=== PATIENT | male | born 1985 | race Caucasian/White ===

== ENCOUNTER 2017-09-06 05:29 | Emergency (ER) | payer SELFPAY ==
[~2017-09-06 05:29] MED LIST: CYCL5TAB PO; NAPR-576 PO
[2017-09-06 05:34] VITALS: BP 142/74; PULSE 105; RESP 14; TEMP 97.8; O2SAT 96
[2017-09-06] MEDS ORDERED: SERO50TA PO (05:55)
[2017-09-06] MEDS ORDERED: TRIL300T PO (05:55)
[2017-09-06] MEDS ORDERED: PRAZ1 PO (05:55)
[2017-09-06] MEDS ORDERED: ZOLO25TA PO (05:55)
--- NOTE | 2017-09-06 06:11 | PD ---
HPI Chief Complaint: Psychiatric Symptoms Time Seen by Provider: 05:46 Travel History International Travel<30 days: No Contact w/Intl Traveler<30days: No Traveled to known affect area: No History of Present Illness HPI 32-year-old white male presents emergency department on a voluntary basis for psychological evaluation. Patient states that he is feeling increasingly depressed. Patient has a history of bipolar, PTSD, traumatic brain injury with subdural hematoma. Patient states that he also has a history of substance abuse. He moved from [facility] 2 weeks ago. He had come down to [place] with his girlfriend. He states that she had gone back home. They had moved here initially to start a new life together. He states that she did not want to stay here. When he had moved down here he ran out of his medications. He has been using cocaine again and drinking alcohol. he has lost his motivation.He is feeling increasingly useless, depressed. Patient denies any suicidal ideation. No homicidal ideation. He denies any medical complaints. Patient denies any toxic ingestions. [facility] Past Medical History Narrative Medical Bipolar, TBI with subdural hematoma, substance abuse Bipolar Disorder: Yes Anxiety: Yes Depression: Yes Diabetes: No Diminished Hearing: No Neurologic: Yes (TRAUMATIC BRAIN INJURY) Psychiatric: Yes Tetanus Vaccination: < 5 Years Past Surgical History Surgical History: No Previous Surgery Social History Alcohol Use: Yes (OCCASIONAL) Tobacco Use: Yes (1PPD) Substance Use: Yes (Cocaine) Allergies-Medications (Allergen,Severity, Reaction): Coded Allergies: penicillin G (Unverified Allergy, Severe, RASH, 09/06/17) Reported Meds & Prescriptions Reported Meds & Active Scripts Active Reported Seroquel (Quetiapine Fumarate) 50 Mg Tab 50 Mg PO HS Minipress (Prazosin HCl) 1 Mg Cap 1 Mg PO HS Trileptal (Oxcarbazepine) 300 Mg Tab 300 Mg PO TID Zoloft (Sertraline HCl) 25 Mg Tab 25 Mg PO DAILY Review of Systems General / Constitutional: No: Fever Eyes: No: Visual changes HENT: No: Headaches Cardiovascular: No: Chest Pain or Discomfort Respiratory: No: Shortness of Breath Gastrointestinal: No: Abdominal Pain Genitourinary: No: Dysuria Musculoskeletal: No: Pain Skin: No Rash Neurologic: No: Weakness Psychiatric: Positive: Depression, Mood Disorder, Substance Abuse, No: Anxiety , Suicidal Ideations, Disorder of Thought, Homicidal Ideation Endocrine: No: Polydipsia Hematologic/Lymphatic: No: Easy Bruising Physical Exam Narrative GENERAL: Well-nourished, well-developed patient. SKIN: Warm and dry. HEAD: Normocephalic and atraumatic. EYES: No scleral icterus. No injection or drainage. ENT: No nasal drainage noted. Mucous membranes pink. Airway patent. NECK: Supple, trachea midline. Moves head freely without obvious discomfort. CARDIOVASCULAR: Regular rate and rhythm without murmurs, gallops, or rubs. RESPIRATORY: Breath sounds equal bilaterally. No accessory muscle use. GASTROINTESTINAL: Abdomen soft, non-tender, nondistended. EXTREMITIES: No cyanosis or edema. BACK: Nontender without obvious deformity. No CVA tenderness. NEURO: Patient is alert and oriented. no sensorimotor deficits. Nonfocal. Normal speech. PSYCH: No delusions. No auditory or visual hallucinations. Data Data Last Documented VS Vital Signs Date Time Temp Pulse Resp B/P (MAP) Pulse Ox O2 Delivery O2 Flow Rate FiO2 09/06/17 05:34 97.8 105 14 142/74 (96) 96 Orders Orders Complete Blood Count With Diff (09/06/17 06:02) Comprehensive Metabolic Panel (09/06/17 06:02) Thyroid Stimulating Hormone (09/06/17 06:02) Psych Screen (09/06/17 06:02) Drug Screen, Random Urine (09/06/17 06:02) Alcohol (Ethanol) (09/06/17 06:02) MDM Medical Decision Making Medical Screen Exam Complete: Yes Emergency Medical Condition: Yes Medical Record Reviewed: Yes Differential Diagnosis MDM: High Differential diagnoses: Schizophrenia, schizoaffective disorder, bipolar, anxiety, depression, adjustment reaction, mood disorder NOS, ODD, depressive disorder NOS, dementia, dementia with agitation, psychosis NOS, substance induced mood disorder, DMDD, Asperger syndrome, infection,electrolyte abnormality, malingering. Narrative Course Mental health screening discussed with the patient. Psychiatric screen ordered. The patient has been medically cleared. This is medical clearance for psychiatric admission Diagnosis Primary Impression: Medical clearance for psychiatric admission Condition: Stable Moncho Daniel Sep 06, 2017 06:11
[2017-09-06 06:56] LABS: AUTOMATED NEUTROPHIL # 6.1 TH/MM3 (1.8-7.7); BASOPHIL % 0.5 % (0.0-2.0); EOSINOPHIL % 0.2 % (0.0-4.0); HEMOGLOBIN 14.5 GM/DL (13.0-17.0); LYMPH % 26.1 % (9.0-44.0); LYMPHOCYTE # 2.4 TH/MM3 (1.0-4.8); MEAN CELL VOLUME 84.3 FL (80.0-100.0); MEAN CORPUSCULAR HEMOGLOBIN 28.4 PG (27.0-34.0); MEAN CORPUSCULAR HGB CONC 33.7 % (32.0-36.0); MEAN PLATELET VOLUME 8.2 FL (7.0-11.0); MONO % 5.9 % (0.0-8.0); MONOCYTE # 0.5 TH/MM3 (0-0.9); NEUT % 67.3 % (16.0-70.0); PLATELET COUNT 257 TH/MM3 (150-450); RED CELL DISTRIBUTION WIDTH 15.1 % (11.6-17.2); WHITE BLOOD COUNT 9.1 TH/MM3 (4.0-11.0)
[2017-09-06 07:08] LABS: ALBUMIN 4.5 GM/DL (3.4-5.0); ALT (GPT) 18 U/L (12-78); AST (GOT) 16 U/L (15-37); BICARBONATE 22.8 MEQ/L (21.0-32.0); BLOOD UREA NITROGEN 9 MG/DL (7-18); CALCIUM 8.7 MG/DL (8.5-10.1); CHLORIDE 106 MEQ/L (98-107); CREATININE 0.82 MG/DL (0.60-1.30); GLOMERULAR FILTRATION RATE 109 ML/MIN (>89); GLUCOSE,RANDOM 91 MG/DL (74-106); SODIUM (NA) 140 MEQ/L (136-145)
[2017-09-06 07:18] LABS: ALKALINE PHOSPHATASE 77 U/L (45-117); TOTAL BILIRUBIN ADULT 0.3 MG/DL (0.2-1.0)
[2017-09-06 07:25] VITALS: BP 123/62; PULSE 86; RESP 18; O2SAT 96
[2017-09-06 13:54] VITALS: BP 122/76; PULSE 81; RESP 18; O2SAT 99
--- NOTE | 2017-09-06 16:37 | PD.PSY.CON ---
Provisional Diagnosis Admission Date [place] I. Substance induced mood disorder, cocaine and alcohol use disorder [place] II. Antisocial personality disorder, [place] III. no medical history History of Present Illness Service Psychiatry Consult Requested By ER Reason for Consult SI Primary Care Physician No Primary Care Physician HPI The patient is a 32-year-old man, domiciled in [facility], employed, , recently moved form [place], Self reported PPHx of bipolar, PTSD, maniple psychiatric admission, SAs, self cutting behavior, medical history of TBI, presents emergency department on a voluntary basis for psychological evaluation. Patient states that he is feeling increasingly depressed. Patient has a history of bipolar, PTSD, traumatic brain injury with subdural hematoma. Patient states that he also has a history of substance abuse. He moved from [facility] 2 weeks ago. He had come down to [place] with his girlfriend. He states that she had gone back home. They had moved here initially to start a new life together. He states that she did not want to stay here. When he had moved down here he ran out of his medications. He has been using cocaine again and drinking alcohol. he has lost his motivation.He is feeling increasingly useless , depressed. Patient denies any suicidal ideation. No homicidal ideation. He denies any medical complaints. Patient denies any toxic ingestions. Past Family Social History Coded Allergies: penicillin G (Unverified Allergy, Severe, RASH, 09/06/17) Reported Medications Quetiapine (Seroquel) 50 Mg Tab, 50 MG PO HS, #30 TAB 0 Refills 09/06/17 Prazosin (Minipress) 1 Mg Cap, 1 MG PO HS for Blood Pressure Management, #60 CAP 0 Refills 09/06/17 Oxcarbazepine (Trileptal) 300 Mg Tab, 300 MG PO TID for Seizure Control, #60 TAB 0 Refills 09/06/17 Sertraline (Zoloft) 25 Mg Tab, 25 MG PO DAILY, #30 TAB 0 Refills 09/06/17 Physical Exam Vital Signs Vital Signs Date Time Temp Pulse Resp B/P (MAP) Pulse Ox O2 Delivery O2 Flow Rate FiO2 09/06/17 13:54 81 18 122/76 (91) 99 Room Air 09/06/17 05:34 97.8 Lab Results Test 09/06/17 06:15 White Blood Count 9.1 TH/MM3 Red Blood Count 5.10 MIL/MM3 Hemoglobin 14.5 GM/DL Hematocrit 43.0 % Mean Corpuscular Volume 84.3 FL Mean Corpuscular Hemoglobin 28.4 PG Mean Corpuscular Hemoglobin Concent 33.7 % Red Cell Distribution Width 15.1 % Platelet Count 257 TH/MM3 Mean Platelet Volume 8.2 FL Neutrophils (%) (Auto) 67.3 % Lymphocytes (%) (Auto) 26.1 % Monocytes (%) (Auto) 5.9 % Eosinophils (%) (Auto) 0.2 % Basophils (%) (Auto) 0.5 % Neutrophils # (Auto) 6.1 TH/MM3 Lymphocytes # (Auto) 2.4 TH/MM3 Monocytes # (Auto) 0.5 TH/MM3 Eosinophils # (Auto) 0.0 TH/MM3 Basophils # (Auto) 0.0 TH/MM3 CBC Comment DIFF FINAL Differential Comment Blood Urea Nitrogen 9 MG/DL Creatinine 0.82 MG/DL Random Glucose 91 MG/DL Total Protein 8.0 GM/DL Albumin 4.5 GM/DL Calcium Level 8.7 MG/DL Alkaline Phosphatase 77 U/L Aspartate Amino Transf (AST/SGOT) 16 U/L Alanine Aminotransferase (ALT/SGPT) 18 U/L Total Bilirubin 0.3 MG/DL Sodium Level 140 MEQ/L Potassium Level 3.9 MEQ/L Chloride Level 106 MEQ/L Carbon Dioxide Level 22.8 MEQ/L Anion Gap 11 MEQ/L Estimat Glomerular Filtration Rate 109 ML/MIN Thyroid Stimulating Hormone 3rd Gen 1.860 uIU/ML Urine Opiates Screen NEG Urine Barbiturates Screen NEG Urine Amphetamines Screen NEG Urine Benzodiazepines Screen NEG Urine Cocaine Screen POS Urine Cannabinoids Screen NEG Ethyl Alcohol Level 32 MG/DL Mental Status Examination Appearance: Appropriate Consciousness: Alert Orientation: x4 Motor Activity: Normal gait Speech: Unremarkable Language: Adequate Fund of Knowledge: Adequate Attention and Concentration: Adequate Memory: Unremarkable Mood: Angry Affect: Irritable Thought Process & Associations: Intact Thought Content: Appropriate Hallucination Type: None Delusion Type: None Suicidal Ideation: No Suicidal Plan: No Suicidal Intention: No Homicidal Ideation: No Homicidal Plan: No Homicidal Intention: No Insight: Poor Judgment: Poor Assessment & Plan Problem List: (1) Antisocial personality disorder ICD Codes: F60.2 - Antisocial personality disorder Assessment & Plan: Patient does not present any neuropsychiatric symptoms or require immediate psychiatric intervention. Hydroxyzine 25 mg for anxiety Drug seeking behavior, requesting benzodiazepines. Try to avoid narcotics as much as possible. Attention seeking and disrespectful behavior with staff, boundaries setting. Is strong cluster B is identified during the evaluation to suggest a potential underlying antisocial personality disorder, No admission indicated at this time. Referral for outpatient psychiatry care provided Ram act will be lifted Assessment & Plan Estimated LOS: days Jermaine Maddox MD Sep 06, 2017 16:37
--- NOTE | 2017-09-06 16:46 | PD ---
Physical Exam Date Seen by Provider: Sep 06, 2017 Time Seen by Provider: 16:45 Narrative For full history and physical examination please see previous notes. Data Data Last Documented VS Vital Signs Date Time Temp Pulse Resp B/P (MAP) Pulse Ox O2 Delivery O2 Flow Rate FiO2 09/06/17 13:54 81 18 122/76 (91) 99 Room Air 09/06/17 05:34 97.8 Orders Orders Complete Blood Count With Diff (09/06/17 06:02) Comprehensive Metabolic Panel (09/06/17 06:02) Thyroid Stimulating Hormone (09/06/17 06:02) Psych Screen (09/06/17 06:02) Drug Screen, Random Urine (09/06/17 06:02) Alcohol (Ethanol) (09/06/17 06:02) Diet Regular Basic (09/06/17 Breakfast) Diet Regular Basic (09/06/17 Lunch) Diet Regular Basic (09/06/17 Dinner) Hydroxyzine Pamoate (Vistaril) (09/06/17 15:45) Ed Discharge Order (09/06/17 16:41) Labs Laboratory Tests Test 09/06/17 06:15 White Blood Count 9.1 TH/MM3 Red Blood Count 5.10 MIL/MM3 Hemoglobin 14.5 GM/DL Hematocrit 43.0 % Mean Corpuscular Volume 84.3 FL Mean Corpuscular Hemoglobin 28.4 PG Mean Corpuscular Hemoglobin Concent 33.7 % Red Cell Distribution Width 15.1 % Platelet Count 257 TH/MM3 Mean Platelet Volume 8.2 FL Neutrophils (%) (Auto) 67.3 % Lymphocytes (%) (Auto) 26.1 % Monocytes (%) (Auto) 5.9 % Eosinophils (%) (Auto) 0.2 % Basophils (%) (Auto) 0.5 % Neutrophils # (Auto) 6.1 TH/MM3 Lymphocytes # (Auto) 2.4 TH/MM3 Monocytes # (Auto) 0.5 TH/MM3 Eosinophils # (Auto) 0.0 TH/MM3 Basophils # (Auto) 0.0 TH/MM3 CBC Comment DIFF FINAL Differential Comment Blood Urea Nitrogen 9 MG/DL Creatinine 0.82 MG/DL Random Glucose 91 MG/DL Total Protein 8.0 GM/DL Albumin 4.5 GM/DL Calcium Level 8.7 MG/DL Alkaline Phosphatase 77 U/L Aspartate Amino Transf (AST/SGOT) 16 U/L Alanine Aminotransferase (ALT/SGPT) 18 U/L Total Bilirubin 0.3 MG/DL Sodium Level 140 MEQ/L Potassium Level 3.9 MEQ/L Chloride Level 106 MEQ/L Carbon Dioxide Level 22.8 MEQ/L Anion Gap 11 MEQ/L Estimat Glomerular Filtration Rate 109 ML/MIN Thyroid Stimulating Hormone 3rd Gen 1.860 uIU/ML Urine Opiates Screen NEG Urine Barbiturates Screen NEG Urine Amphetamines Screen NEG Urine Benzodiazepines Screen NEG Urine Cocaine Screen POS Urine Cannabinoids Screen NEG Ethyl Alcohol Level 32 MG/DL MDM Medical Record Reviewed: Yes Supervised Visit with MARGAUX: No Narrative Course Patient is a 32-year-old male that presented to emergency department voluntarily for psychiatric evaluation. Patient was seen and evaluated emergency department, medically cleared. He was then evaluated by the psychiatrist. Patient will be discharged home at this time. Diagnosis Primary Impression: Antisocial personality disorder Referrals: [facility] Patient Instructions: General Instructions Additional Instruction: Avoid doing drugs Avoid excessive intake of alcohol Follow-up with Beto Blas Return to emergency department for any new or worsening symptoms Med/Other Pt SpecificInfo: No Change to Meds Disposition: 01 DISCHARGE HOME Condition: Stable Lizzie Bryant [facility] Sep 06, 2017 16:46
== END 2017-09-06 16:58 | disposition home or self-care (01) ==
LOC: NEPD 05:29 → NEPJ 16:58
DX: F60.2 Antisocial personality disorder (principal); F31.9 Bipolar disorder, unspecified; F43.10 Post-traumatic stress disorder, unspecified; F14.90 Cocaine use, unspecified, uncomplicated; F17.210 Nicotine dependence, cigarettes, uncomplicated; Z87.820 Personal history of traumatic brain injury; Z88.0 Allergy status to penicillin; Z79.899 Other long term (current) drug therapy
CPT/HCPCS: 80053; 80307; 84443; 85025; 99284